=== PATIENT | male | born 1985 | race Caucasian/White ===

== ENCOUNTER 2017-02-09 03:31 | Emergency (ER) | payer SELFPAY ==
[~2017-02-09] VITALS: Ht 175.3 cm; Wt 84.1 kg
[~2017-02-09 03:31] MED LIST: FLEXERIL10 MG PO; LORTAB 5/500 501 TAB PO; PRILOSEC40 MG PO
[2017-02-09 03:35] VITALS: TEMP 98.1
[2017-02-09 05:07] VITALS: BP 145/100; PULSE 126
== END 2017-02-09 05:10 | disposition home or self-care (01) ==
LOC: COL.ER 03:31
DX: S61.412A Laceration without foreign body of left hand, initial encounter (principal); W26.8XXA Contact with other sharp object(s), not elsewhere classified, initial encounter; Y92.69 Other specified industrial and construction area as the place of occurrence of the external cause; Y99.0 Civilian activity done for income or pay